=== PATIENT | male | born 2000 | race Caucasian/White ===

== ENCOUNTER 2019-10-08 21:32 | Emergency (ER) | payer MEDICAID ==
[~2019-10-08] VITALS: Ht 172.7 cm; Wt 72.6 kg
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
--- NOTE | 2019-10-08 21:40 | NUR ---
pt w/c assist to bed 07
[2019-10-08 21:44] VITALS: BP 145/64
[2019-10-08] MEDS ORDERED: MORPHINE SULFATE 4 MG/ML SYR IVP ONE (21:45)
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
--- NOTE | 2019-10-08 21:55 | NUR ---
XRAY AT BEDSIDE.
[2019-10-08] MEDS ORDERED: LIDOCAINE/EPI 1% 1:100000 20 ML VIAL INJ ONE (22:20)
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
--- NOTE | 2019-10-08 22:50 | NUR ---
Dr. Murcia at bedside performing procedure.
[2019-10-08] MEDS ORDERED: BACITRACIN OINT 500 UNITS/GM PKT TP ONE (22:55)
--- NOTE | 2019-10-08 23:05 | NUR ---
jeanie CUENCA arrived at ER and currently taking pt statement.
--- NOTE | 2019-10-09 00:27 | NUR ---
[place] [employer] at bedside
[2019-10-09 00:52] VITALS: BP 139/68
--- NOTE | 2019-10-09 00:52 | NUR ---
Patient discharged with v/s stable. Written and verbal after care instructions given and explained. Patient alert, oriented and verbalized understanding of instructions. Ambulatory with steady gait. All questions addressed prior to discharge. ID band removed. Patient advised to follow up with PMD. Rx of naprosyn, cephalexin given. Patient educated on indication of medication including possible reaction and side effects. Opportunity to ask questions provided and answered.
== END 2019-10-09 00:52 ==
LOC: MED 21:32
DX: S90.851A Superficial foreign body, right foot, initial encounter (principal); W34.00XA Accidental discharge from unspecified firearms or gun, initial encounter; Y93.89 Activity, other specified; Y92.89 Other specified places as the place of occurrence of the external cause; Y99.8 Other external cause status
CPT/HCPCS: 10120; 73590; 96374; 99284; J2001; J2270